=== PATIENT | female | born 1955 | race Caucasian/White ===

== ENCOUNTER 2019-08-08 15:25 | Emergency (ER) | payer OTHER ==
[~2019-08-08] VITALS: Ht 157.5 cm; Wt 120.2 kg
[~2019-08-08 15:25] MED LIST: ASPIR 8181 MG PO; ASPIRIN EC81 M1 PO; KLOR-CON 1010 MEQ PO; MAGNESIUM250 M1 PO; MS CONTIN15 MG PO; NYSTATIN1 EA10 TOP; PERCOCET 10-321 EACH PO; ROBAXIN 750 MG750 M1 PO; SYNTHROID75 MCG PO; UROCIT-K10 ME1 PO; VALSARTAN-HCTZ1 EAC2 PO; VITAMIN D350000 UNIT PO
[2019-08-08] MEDS ORDERED: BACTRIM DS TAB1 EACH PO (15:40)
[2019-08-08 17:35] VITALS: BP 121/54
== END 2019-08-08 17:35 | disposition home or self-care (01) ==
LOC: ER 15:25
DX: M79.651 Pain in right thigh (principal); I10 Essential (primary) hypertension; E03.9 Hypothyroidism, unspecified; Z90.49 Acquired absence of other specified parts of digestive tract; Z87.442 Personal history of urinary calculi; Z90.89 Acquired absence of other organs; Z98.890 Other specified postprocedural states; Z88.5 Allergy status to narcotic agent